=== PATIENT | male | born 1945 | race Caucasian/White ===

== ENCOUNTER 2018-06-12 19:45 | Emergency (ER) | payer OTHER ==
[~2018-06-12] VITALS: Ht 177.8 cm; Wt 86.2 kg
[~2018-06-12 19:45] MED LIST: ACID CONTROL150 MG PO; ALBUTEROL SULF8.5 GM IH; CARDIZEM CD240 MG PO; COUMADIN5 MG PO; CRESTOR20 MG PO; CYCLOBENZAPRINE10 MG PO; DOCUSATE SODIU100 MG PO; EVZIO0.4 MG/0.4 IJ; FINASTERIDE5 MG PO; FISH OIL 1,0001 EAC3 PO; FLOMAX0.4 MG PO; GABAPENTIN800 MG PO; HALFPRIN162 MG PO; MECLIZINE HCL25 MG PO; MS CONTIN30 MG PO; MS CONTIN60 MG PO; NAPROSYN375 MG PO; PROVENTIL HFA6.7 GM INH; RANEXA500 MG PO; SKIN TREATMENT225 GM TOP; TOPROL XL25 MG PO; TYLENOL325 MG PO; UREVAZ60 GM TP; VITAMIN B-121000 MC1 PO; VITAMIN C500 M1 PO; ZOFRAN ODT4 MG PO; ZOFRAN ODT8 MG PO; ZOLOFT100 MG PO
--- OUTSIDE RECORDS SUMMARY | 2018-06-12 19:50 | XMS ---
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 Sury has no Care Guidelines for this patient. Ariel VISIT COUNT (12 MO.) 1 TAYLOR Liu TOTAL 1 NOTE: Visits indicate total known visits. ED/UCC VISIT TRACKING (12 MO.) 06/12/2018 19:45 T[facility] Cook [place] TYPE: Emergency COMPLAINT: - R FINGER LAC INPATIENT VISIT TRACKING (12 MO.) No inpatient visits to display in this time frame [id number]
== END 2018-06-12 21:59 | disposition home or self-care (01) ==
LOC: ED 19:45
DX: S09.90XA Unspecified injury of head, initial encounter (principal); S61.210A Laceration without foreign body of right index finger without damage to nail, initial encounter; I10 Essential (primary) hypertension; I25.2 Old myocardial infarction; Z88.7 Allergy status to serum and vaccine; Z79.01 Long term (current) use of anticoagulants; Z79.899 Other long term (current) drug therapy; Z79.82 Long term (current) use of aspirin; W45.8XXA Other foreign body or object entering through skin, initial encounter; W19.XXXA Unspecified fall, initial encounter
CPT/HCPCS: 99283

== ENCOUNTER 2019-08-19 14:55 | Emergency (ER) | payer OTHER ==
[~2019-08-19] VITALS: Ht 177.8 cm; Wt 86.2 kg
[2019-08-19] MEDS ORDERED: NITROGLYCERIN0.4 MG SL (18:44)
--- NOTE | 2019-08-19 19:43 | EKG ---
[facility] [address] [facility] [place], [place] [address] Signed Ventricular-paced rhythm Abnormal ECG Confirmed by MELANIA CHRISTIAN MD ([id number]) on 08/19/2019 7:43:34 PM Electronically Signed By: MELANIA CHRISTIAN MD 08/19/19 194 PATIENT NAME: AMERICA ORTIZ Electrocardiogram DATE OF : 43 PHYSICIAN: MELANIA CHRISTIAN MD REPORT #: [id number] REPORT IS CONFIDENTIAL AND NOT TO BE RELEASED WITHOUT AUTHORIZATION
== END 2019-08-19 18:53 | disposition home or self-care (01) ==
LOC: ED 14:55
DX: R07.89 Other chest pain (principal); I10 Essential (primary) hypertension; I25.10 Atherosclerotic heart disease of native coronary artery without angina pectoris; K21.9 Gastro-esophageal reflux disease without esophagitis; I25.2 Old myocardial infarction; Z88.7 Allergy status to serum and vaccine; Z79.899 Other long term (current) drug therapy; Z79.01 Long term (current) use of anticoagulants; Z79.82 Long term (current) use of aspirin
CPT/HCPCS: 71045; 80053; 83735; 84484; 85025; 85610; 93005; 93010; 99285-25

== ENCOUNTER 2021-01-25 07:54 | Emergency (ER) | payer MEDICARE ==
[~2021-01-25] VITALS: Ht 177.8 cm; Wt 86.2 kg
[~2021-01-25 07:54] MED LIST changes: +NITROGLYCERIN0.4 MG SL
[2021-01-25] MEDS ORDERED: ELIQUIS5 MG PO (08:28)
[2021-01-25] MEDS ORDERED: D3-200050 MCG PO (08:29)
[2021-01-25] MEDS ORDERED: ACID CONTROLLER20 MG PO (08:30)
[2021-01-25] MEDS ORDERED: FISH OIL-VIT D1 EACH PO (08:31)
[2021-01-25] MEDS ORDERED: METOPROLOL SUCC50 MG PO (08:32)
[2021-01-25] MEDS ORDERED: MORPHINE SULFAT15 M1 PO (08:33)
[2021-01-25] MEDS ORDERED: FLOMAX0.4 MG PO (08:34)
[2021-01-25] MEDS ORDERED: ZITHROMAX250 MG PO (11:50)
--- NOTE | 2021-01-25 15:20 | EKG ---
[facility] [address] [facility] [place] [address] Signed Normal sinus rhythm Nonspecific T wave abnormality Prolonged QT Abnormal ECG When compared with ECG of 19-AUG-2019 15:00, Sinus rhythm has replaced Electronic ventricular pacemaker Vent. rate has decreased BY 42 BPM Confirmed by ALENA CRAMER MD ([id number]) on 01/25/2021 3:20:28 PM Electronically Signed By: ALENA CRAMER MD 01/25/21 1520 PATIENT NAME: AMERICA ORTIZ Electrocardiogram DATE OF : 43 PHYSICIAN: ALENA CRAMER MD REPORT #: [id number] REPORT IS CONFIDENTIAL AND NOT TO BE RELEASED WITHOUT AUTHORIZATION
--- NOTE | 2021-01-25 15:20 | EKG ---
[facility] [address] [facility] [place] [address] Signed Normal sinus rhythm Nonspecific T wave abnormality Prolonged QT Abnormal ECG When compared with ECG of 25-JAN-2021 08:00, (Unconfirmed) No significant change was found Confirmed by ALENA CRAMER MD ([id number]) on 01/25/2021 3:20:31 PM Electronically Signed By: ALENA CRAMER MD 01/25/21 1520 PATIENT NAME: AMERICA ORTIZ Don Electrocardiogram DATE OF : 43 PHYSICIAN: ALENA CRAMER MD REPORT #: [id number] REPORT IS CONFIDENTIAL AND NOT TO BE RELEASED WITHOUT AUTHORIZATION
== END 2021-01-25 12:08 | disposition home or self-care (01) ==
LOC: ED 07:54
DX: J18.1 Lobar pneumonia, unspecified organism (principal); R07.89 Other chest pain; Z20.822 Contact with and (suspected) exposure to COVID-19; I25.10 Atherosclerotic heart disease of native coronary artery without angina pectoris; K21.9 Gastro-esophageal reflux disease without esophagitis; I48.91 Unspecified atrial fibrillation; I25.2 Old myocardial infarction; I10 Essential (primary) hypertension; Z88.7 Allergy status to serum and vaccine; Z79.899 Other long term (current) drug therapy
CPT/HCPCS: 71045; 80053; 83605; 83735; 83880; 84484; 85025; 93005; 93010; 96365; 99285-25; C9803; J0696; U0003

== ENCOUNTER 2021-03-21 08:29 | Emergency (ER) | payer MEDICARE ==
[~2021-03-21] VITALS: Ht 177.8 cm; Wt 79.8 kg
[~2021-03-21 08:29] MED LIST changes: +ACID CONTROLLER20 MG PO; +D3-200050 MCG PO; +ELIQUIS5 MG PO; +FISH OIL-VIT D1 EACH PO; +METOPROLOL SUCC50 MG PO; +MORPHINE SULFAT15 M1 PO; +ZITHROMAX250 MG PO
== END 2021-03-21 11:49 | disposition home or self-care (01) ==
LOC: ED 08:29
DX: M47.892 Other spondylosis, cervical region (principal); I25.10 Atherosclerotic heart disease of native coronary artery without angina pectoris; K21.9 Gastro-esophageal reflux disease without esophagitis; I48.91 Unspecified atrial fibrillation; I25.2 Old myocardial infarction; I10 Essential (primary) hypertension; Z88.7 Allergy status to serum and vaccine; Z79.899 Other long term (current) drug therapy; Z79.891 Long term (current) use of opiate analgesic
CPT/HCPCS: 72125; 99283-25

== ENCOUNTER 2022-05-15 20:32 | Inpatient (IN) | payer OTHER, MEDICARE ==
[~2022-05-15] VITALS: Ht 177.8 cm; Wt 73.5 kg
[2022-05-16] MEDS ORDERED: ASPIRIN81 MG PO (02:01)
[2022-05-16] MEDS ORDERED: SERTRALINE HCL150 MG PO (02:01)
--- NOTE | 2022-05-16 02:47 | NUR ---
PT ARRIVED TO ROOM 114 AT 0138 VIA STRETCHER. PT ABLE TO STAND TO USE URINAL AND THEN TRANSFER SELF TO BED. TOLERATED WELL, WIHTOUT DIZZINESS OR SOB. ADMISSION AND ASSESSMENT COMPLETED. PT HAS 2L O2 VIA NC IN PLACE. TELE #2, PACED RHYTHM. IV ABX INFUSION COMPLETED, IV SALINE LOCKED. PT PROVIDED WITH WATER AND ORIENTED TO ROOM, BED, AND CALL [place]. DENIES FURTHER NEEDS AT THIS TIME, BELONGINGS AND CALL LIGHT WITHIN REACH.
--- NOTE | 2022-05-16 05:28 | NUR ---
PT SLEEPING, WOKE EASILY WHEN SPOKEN TO. ASSESSMENT COMPLETED, LUNGS SOUND DIMINISHED WITH COARSE CRACKLES IN BASES. OTHERWISE ASSESSMENT IS UNCHANGED. PT DENIES PAIN OR SOB. VSS. IV REMAINS INTACT. CALL LIGHT AND BELONGINGS WITHIN REACH.
--- NOTE | 2022-05-16 06:29 | NUR ---
IN TO CHECK ON PT, SLEEPING AT THIS TIME, DID NOT DISTURB. 2L O2 REMAINS IN PLACE. HR:60, SPO2:97% PER TELE. PT DOES NOT APPEAR TO BE IN ANY DISTRESS. URINAL EMPTIED. CALL LIGHT AND BELONGINGS WITHIN REACH.
--- NOTE | 2022-05-16 09:11 | NUR ---
Rounded on patient, resting in bed eating breakfast. Currently on 2L NC, states no SOB, endorses slight pain r/t PNA and deep breathing but denies needs at this time. Primary RN aware. Call light in reach.
--- NOTE | 2022-05-16 09:42 | NUR ---
PT. C/O PLEURITIC PAIN ON LEFT SIDE. LEFT LUNG IS DIM. THROUGHOUT. ADMIN TYLENOL. O2 SAT IS 94% ON 2L O2 NC. ASSESSMENT COMPLETED PT. ASSISTED WITH SITTING UP FOR BREAKFAST AND AMBULATING TO THE BATHROOM. ON THE WAY BACK FROM BATHROOM PT BEGAN TO STUMBLE AND HELD THE WALL. PT. STATES HE HAS CHRONIC VERTIGO. DISCUSSED SAFETY, POC AND MEDS. LEFT RESTING WITH CALL LIGHT IN REACH.
--- NOTE | 2022-05-16 11:41 | NUR ---
ANSWERED PATIENT'S CALL LIGHT. PATIENT WAS IN THE BATHROOM. WALKED WITH PATIENT BACK TO HIS BED. ONCE HE WAS SETTLED GAVE HIM A WASH CLOTH TO WASH HIS FACE AND ALSO A TOOTH BRUSH AND TOOTH PASTE TO CLEAN HIS DENTURES. ALSO GAVE HIM CUP WITH A LID TO PUT HIS TEETH IN AND SOAK OVERNIGHT.
--- NOTE | 2022-05-16 13:56 | NUR ---
PT. STATES HE IS HAVING WITHDRAWAL SX FROM NOT HAVING MORPHINE. ADMIN PRN PO MORPHINE. 02 SAT IS 94% ON 2L NC AND RR IS 23. PT DENIES FURTHER NEEDS AND LEFT RESTING WITH CALL LIGHT IN REACH.
--- NOTE | 2022-05-16 14:12 | NUR ---
PT. USED CALL LIGHT TO REPORT VOMITING. HE VOMITTED MORPHINE TAB. UPDATED , PT HAS ALREADY HAD ZOFRAN AND NOT DUE.
--- NOTE | 2022-05-16 14:42 | NUR ---
THIS RN TAKING OVER PATIENT CARE AND PRIMO ANTONY IS GOING FILM VAULT SUPERVISOR. REPORT RECEIVED. PATIENT JUST JUST RECEIVED IV COMPAZINE AND IV MORPHINE PER CASSIA'S REPORT PATIENT HAD VOMITED UP HIS ORAL PAIN MEDICATION. PATIENT HAS NO CURRENT NURSE NEEDS FROM THIS RN AT THIS TIME. CALL LIGHT IS IN REACH.
--- NOTE | 2022-05-16 15:13 | NUR ---
THIS RN IN TO SEE PATIENT AND GIVEN SCHEDULED PO MEDS. PATIENT REMAINS NAUSEATED AND 12.5MG SIVP PHENERGAN IN 20MLS NS GIVEN PER PROTOCOL AND HOLDING PO MEDS FOR A BIT TO LET PATIENT'S NAUSEA SETTLE. RT HERE TO GIVE A BREATHING TREATMENT. CALL LIGHT IN REACH.
--- NOTE | 2022-05-16 15:50 | NUR ---
PATIENT'S NAUSEA HAS SUBSIDED ENOUGH HE WAS ABLE TO FINALLY TAKE HIS PO MEDS. PATIENT STILL HAVING 7/10 PAIN, BUT UNABLE TO GIVE PAIN MEDICATION FOR ANOTHER 30 MINUTES. PATIENT AWAITING PATIENTLY. CALL LIGHT IS IN REACH.
--- NOTE | 2022-05-16 16:33 | NUR ---
THIS RN IN TO SEE PATIENT AND NAUSEA REMAINS GONE, BUT BACK AND SIDE PAIN REMAIN 6/10. 4MG SIVP MS GIVEN. PATIENT REQUESTED TO HAVE A URINAL AT BEDSIDE AND THIS WAS GIVEN. PATIENT DENIES ANY OTHER CARE NEEDS AT THIS TIME. CALL LIGHT IS IN REACH.
--- NOTE | 2022-05-16 17:42 | NUR ---
PATIENT'S VS AND I+O DONE AND RECORDED. ATE 60% OF DINNER AND ICE WATER IS REFILLED AND GLASS OF JUICE GIVEN PATIENT'S PAIN IS 2/10 AT THIS TIME AND HE IS COMFORTABLE. PATIENT CONTINUES TO DENY NAUSEA. CALL LIGHT IN REACH. PATIENT HAS NO OTHER CARE NEEDS AT THIS TIME.
--- NOTE | 2022-05-16 19:18 | NUR ---
SHIFT REPORT RECEIVED FROM DAYSHIFT PRIMO ROMERO AT BEDSIDE. pt AWAKE AND RESTING IN BED, RT CHLOE IN ROOM FOR SCHEDULED BREATHING TREATMENT. 2LNC IN PLACE, CHRONIC AT NIGHT. NO DISTRESS NOTED, CALL LIGHT IN REACH.
--- NOTE | 2022-05-16 20:15 | NUR ---
IN GET VS FOR RN, PT HAS URINAL AT BEDSIDE, IS DUE TO VOID FOR OURSHIFT, FRESH WATER FILLED, NO FURTHER NEEDS AT THIS TIME
--- NOTE | 2022-05-16 20:42 | NUR ---
ASSESSMENT COMPLETE, SCHEDULED EVENING MEDS GIVEN (SEE EMAR). pt A/OX4, DENIES PAIN AND NAUSEA. OCCASIONAL COUGHING NOTED, PRODUCING WHITE/YELLOW SPUTUM. LUNG SOUNDS CLEARN, SOMEWHAT DIM IN THE LOWER LOBES. IV SITE WNL, BRISK BLOOD RETURN NOTED. IV SITE WNL, IV ABX INFUSING DIRECTED. NO ADDITIONAL NEEDS. NEW ATTENDS IN PLACE. CALL LIGHT IN REACH.
--- NOTE | 2022-05-16 21:15 | NUR ---
CALL LIGHT ANSWERED, pt ASKING FOR PAIN MEDICATION, COLLEGE DEAN EDUAR TO ADMINISTER SCHEDULED PAIN MEDICATION. IV PUMP ALARMING, DISTAL OCCLUSION NOTED, pt EDUCATED TO USE CALL LIGHT WHEN IV PUMP ALARMS, pt VERBALIZED UNDERSTANDING. IV ABX CONTINUES TO INFUSE DIRECTED. WILL MONITOR.
--- NOTE | 2022-05-16 23:00 | NUR ---
scheduled iv abx infusing as directed, iv site remains wnl. dentures placed in cup with cleanser. glasses on table. no additional needs, call light in reach.
--- NOTE | 2022-05-17 00:10 | NUR ---
IV ABX COMPLETE, IV SITE FLUSHED AND SALINE LOCKED. WNL. PUMP CLEARED. JERRELL GUERIN REMAINS IN ROOM TO ASSIST pt TO BATHROOM. CPOX IN PLACE PER MD ORDERS.
--- NOTE | 2022-05-17 00:15 | NUR ---
IN TO SET PT UP WITH BEDSIDE CPOX, USED THE URINAL, NO FURTHER NEEDS AT THIS TIME
--- NOTE | 2022-05-17 02:06 | NUR ---
SPO2 94% ON 2LNC, HR 60'S. NO DISTRESS NOTED, CALL LIGHT IN REACH. RR EVEN AND UNLABORE. BED ALARM ON.
--- NOTE | 2022-05-17 02:23 | NUR ---
assessment complete, no acute changes. scheduled po cardiac med given, see emar. pt up to void, unable at this time. back in bed, bed alarm on. call light in reach.
--- NOTE | 2022-05-17 04:37 | NUR ---
CALL LIGHT ANSWERED, pt REQUESTING WARM BLANKET. IN BED SHIVERING. pt AFEBRILE, TEMP OF 98.3. BLANKET PROVIDED. PRN TYLENOL FOR 3/10 PAIN W/ COUGH. pt UP TO ATTEMPT TO VOID, UNSUCCESSFUL. BLADDER SCANNED FOR 492. DISCUSSED WITH DELIVERY SUPERVISOR, WILL MONITOR AND REASSESS pt HAS BEEN VOIDING W/O DIFFICULTY SINCE ARRIVAL. NO ADDITIONAL NEEDS, CALL LIGHT IN REACH. BED ALARM ON FOR SAFETY.
--- NOTE | 2022-05-17 06:27 | NUR ---
HAD PT UP IN RM WALKING, PT STARTED TO FEEL SOME URGE, ABLE TO VOID, BACK TO BED, NO FURTHER NEEDS AT THIS TIME
--- NOTE | 2022-05-17 06:32 | NUR ---
ROUNDED ON pt, pt AWAKE AND RESTING IN BED. BED ALARM ON FOR SAFETY. 2LNC REMAINS IN PLACE. pt DEMONSTRATED USE OF IS AND ACAPELLA. NO ADDITIONAL NEEDS, CALL LIGHT IN REACH.
--- NOTE | 2022-05-17 07:30 | NUR ---
THIS RN RECEIVED SHIFT REPORT FROM PRIMO JULIAN. PATIENTRESTING QUIETLY ON HIS RIGHT SIDE ON 2L/NC, EYES CLOSED, RESPIRATIONS ARE REGULAR AND EVEN, AND CALL LIGHT IS IN REACH. PATIENT HAS NO NURSE CARE NEEDS AT THIS TIME. CALL LIGHT IS IN REACH.
--- NOTE | 2022-05-17 08:38 | NUR ---
PATIENT SITTING UP EATING BREAKFAST, AM MEDS GIVEN ALONG WITH SCHEDULED MORPHINE PO FR CHRONIC PAIN 11/06 AT THIS TIME, PATIENT DENIES NAUSEA, PATIENT ATE 85% OF HIS BREAKFAST, AND AM ASSESSMENT IS COMPLETE. IV FLUSHES WELL. PATIENT DENIES ANY OTHER CARE NEEDS AT THIS TIME. BREAKFAST TRAY REMOVED. CALL LIGHT IS IN REACH.
[2022-05-17] MEDS ORDERED: AZITHROMYCIN500 MG PO (10:54)
[2022-05-17] MEDS ORDERED: CEFPODOXIME PR200 MG PO (10:55)
[2022-05-17] MEDS ORDERED: METOPROLOL SUCC50 MG PO (11:32)
[2022-05-17] MEDS ORDERED: NEURONTIN400 MG PO (11:33)
[2022-05-17] MEDS ORDERED: ZOLOFT100 MG PO (11:38)
--- NOTE | 2022-05-17 12:00 | NUR ---
PATIENT DC'D INTACT AND VS STABLE ON DC. B/P MED GIVEN BEFORE DC AND ALL PATIENT'S BELONGINGS RETURNED TO PATIENT. PATIENT TO CALL WEDNESDAY TO HIS PCP FOR F/U APPOINTMENT. PATIENT AND BOTH INFORMED TO FORENSIC TOXICOLOGIST RX'S AT [facility]. THIS RN TOOK PATIENT OUT TO HIS PRIVATE CAR BY TO GO HOME. PATIENT AND HAD NO UNANSWERED QUESTIONS. PATIENT SENT HOME WITH ALL BELONGINGS.
--- NOTE | 2022-05-17 16:21 | EKG ---
[facility] [address] [facility] [place] [address] Signed Sinus rhythm with sinus arrhythmia with occasional premature ventricular complexes Intermittent atrial pacing Abnormal QRS-T angle, consider primary T wave abnormality Abnormal ECG When compared with ECG of 25-JAN-2021 08:38, premature ventricular complexes are now present Confirmed by ALENA CRAMER MD ([id number]) on 05/17/2022 4:21:14 PM Electronically Signed By: ALENA CRAMER MD 05/17/22 1621 PATIENT NAME: AMERICA ORTIZ Don Electrocardiogram DATE OF : 43 PHYSICIAN: ALENA CRAMER MD REPORT #: [id number] REPORT IS CONFIDENTIAL AND NOT TO BE RELEASED WITHOUT AUTHORIZATION
== END 2022-05-17 12:00 | disposition home or self-care (01) | DRG 177 ==
LOC: ED 20:32 → MS 20:33
PROVIDERS: ADMIT Internal Medicine; ATTEND Internal Medicine
DX: J15.6 Pneumonia due to other Gram-negative bacteria (principal); J96.01 Acute respiratory failure with hypoxia; B17.9 Acute viral hepatitis, unspecified; F11.20 Opioid dependence, uncomplicated; I48.20 Chronic atrial fibrillation, unspecified; I25.10 Atherosclerotic heart disease of native coronary artery without angina pectoris; K21.9 Gastro-esophageal reflux disease without esophagitis; N40.0 Benign prostatic hyperplasia without lower urinary tract symptoms; E78.00 Pure hypercholesterolemia, unspecified; G89.4 Chronic pain syndrome; K44.9 Diaphragmatic hernia without obstruction or gangrene; M19.90 Unspecified osteoarthritis, unspecified site; I10 Essential (primary) hypertension; Z95.1 Presence of aortocoronary bypass graft; I25.2 Old myocardial infarction; Z87.828 Personal history of other (healed) physical injury and trauma; Z98.890 Other specified postprocedural states; Z89.022 Acquired absence of left finger(s); Z88.7 Allergy status to serum and vaccine; Z79.51 Long term (current) use of inhaled steroids; Z79.899 Other long term (current) drug therapy; Z79.01 Long term (current) use of anticoagulants; Z95.0 Presence of cardiac pacemaker; Z20.822 Contact with and (suspected) exposure to COVID-19
CPT/HCPCS: 36415; 71045; 71260; 80053; 83735; 83880; 84484; 85025; 87070; 87205; 87502; 93005; 93010; 94640; 94667; 94668; 94760; 94761; 94762; 96365; 96366; 96375; 99285-25; A9270; C9803; J0456; J0696; J0780; J2270; J2405; J2550; J3475; J7060; U0003

== ENCOUNTER 2022-08-31 08:16 | Emergency (ER) | payer OTHER, MEDICARE ==
[~2022-08-31] VITALS: Ht 177.8 cm; Wt 73.5 kg
[~2022-08-31 08:16] MED LIST changes: +ASPIRIN81 MG PO; +AZITHROMYCIN500 MG PO; +CEFPODOXIME PR200 MG PO; +NEURONTIN400 MG PO; +SERTRALINE HCL150 MG PO
[2022-08-31] MEDS ORDERED: CEFDINIR300 MG PO (15:11)
[2022-08-31] MEDS ORDERED: ZITHROMAX250 MG PO (15:11)
--- NOTE | 2022-09-02 23:09 | EKG ---
[facility] [address] [facility] [place] [address] Signed Ventricular-paced rhythm Abnormal ECG When compared with ECG of 15-MAY-2022 21:02, Electronic ventricular pacemaker has replaced Sinus rhythm Confirmed by Jacqueline Bowers MD () on 09/02/2022 11:09:04 PM Electronically Signed By: JACQUELINE BOWERS MD 09/02/22 2309 PATIENT NAME: AMERICA ORTIZ Electrocardiogram DATE OF : 43 PHYSICIAN: JACQUELINE BOWERS MD REPORT #: [id number] REPORT IS CONFIDENTIAL AND NOT TO BE RELEASED WITHOUT AUTHORIZATION
== END 2022-08-31 15:48 | disposition home or self-care (01) ==
LOC: ED 08:16
DX: J18.9 Pneumonia, unspecified organism (principal); K44.9 Diaphragmatic hernia without obstruction or gangrene; I25.10 Atherosclerotic heart disease of native coronary artery without angina pectoris; K21.9 Gastro-esophageal reflux disease without esophagitis; I48.91 Unspecified atrial fibrillation; N40.0 Benign prostatic hyperplasia without lower urinary tract symptoms; I25.2 Old myocardial infarction; I10 Essential (primary) hypertension; Z88.7 Allergy status to serum and vaccine; Z79.899 Other long term (current) drug therapy; Z79.01 Long term (current) use of anticoagulants; Z79.82 Long term (current) use of aspirin; Z20.822 Contact with and (suspected) exposure to COVID-19
CPT/HCPCS: 36415; 71045; 71260; 80053; 81003; 83605; 83880; 85025; 85610; 85730; 87502; 93005; 93010; 94640; 96365; 96375; 99285-25; C9803; J0696; J2930; Q9967; U0003

== ENCOUNTER 2023-01-22 09:17 | Emergency (ER) | payer OTHER, MEDICARE ==
[~2023-01-22] VITALS: Ht 177.8 cm; Wt 76.7 kg
[~2023-01-22 09:17] MED LIST changes: +CEFDINIR300 MG PO
[2023-01-22] MEDS ORDERED: COLACE100 MG PO (10:23)
[2023-01-22] MEDS ORDERED: DILTIAZEM ER240 MG PO (10:25)
[2023-01-22] MEDS ORDERED: LASIX20 MG PO (11:46)
[2023-01-22] MEDS ORDERED: K-TAB10 MEQ PO (11:46)
[2023-01-22 12:20] VITALS: BP 116/60
--- NOTE | 2023-01-24 16:42 | EKG ---
[facility] [address] [facility] [place] [address] Signed Sinus rhythm with occasional ventricular-paced complexes and with occasional premature ventricular complexes T wave abnormality, consider anterolateral ischemia Abnormal ECG When compared with ECG of 31-AUG-2022 08:44, premature ventricular complexes are now present Vent. rate has decreased BY 41 BPM Confirmed by ALENA CRAMER MD ([id number]) on 01/24/2023 4:42:05 PM Electronically Signed By: ALENA CRAMER MD 01/24/23 1642 PATIENT NAME: AMERICA ORTIZ Electrocardiogram DATE OF : 43 PHYSICIAN: ALENA CRAMER MD REPORT #: [id number] REPORT IS CONFIDENTIAL AND NOT TO BE RELEASED WITHOUT AUTHORIZATION
== END 2023-01-22 12:20 | disposition home or self-care (01) ==
LOC: ED 09:17
DX: I11.0 Hypertensive heart disease with heart failure (principal); I50.9 Heart failure, unspecified; N40.0 Benign prostatic hyperplasia without lower urinary tract symptoms; I25.10 Atherosclerotic heart disease of native coronary artery without angina pectoris; I25.2 Old myocardial infarction; Z95.1 Presence of aortocoronary bypass graft; Z88.7 Allergy status to serum and vaccine; Z79.01 Long term (current) use of anticoagulants; Z79.899 Other long term (current) drug therapy; Z79.82 Long term (current) use of aspirin
CPT/HCPCS: 36415; 71045; 80053; 83880; 84484; 85025; 93005; 93010; 96374; 99285-25; J1940

== ENCOUNTER 2023-02-17 20:32 | Emergency (ER) | payer OTHER ==
[~2023-02-17] VITALS: Ht 177.8 cm; Wt 76.7 kg
[~2023-02-17 20:32] MED LIST changes: +COLACE100 MG PO; +DILTIAZEM ER240 MG PO; +K-TAB10 MEQ PO; +LASIX20 MG PO
--- OUTSIDE RECORDS SUMMARY | 2023-02-17 20:34 | XMS ---
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 Sury has no Care Guidelines for this patient. Ariel [facility] (12 MO.) [facility] 4 NOTE: Visits indicate total known visits. ED/C VISIT TRACKING (12 MO.) [facility]23 [facility] [place] [facility] COMPLAINT: - CHEST PAIN 01/22/2023 09:17 [facility] [place] TYPE: Emergency COMPLAINT: - SHORTNESS OF BREATH DIAGNOSES: - Allergy status to serum and vaccine - Atherosclerotic heart disease of [place] coronary artery without angina pectoris - Benign prostatic hyperplasia without lower urinary tract symptoms - Chest pain, unspecified - Heart failure, unspecified - Hypertensive heart disease with heart failure - termite exterminator helper (current) use of anticoagulants - termite exterminator helper (current) use of aspirin - Old myocardial infarction - Other extermination inspector (current) drug therapy - Presence of aortocoronary bypass graft 08/31/2022 08:16 [facility] [place] TYPE: Emergency COMPLAINT: - SOB, WHEEZING, CONGESTION, COUGH DIAGNOSES: - Allergy status to serum and vaccine - Atherosclerotic heart disease of [place] coronary artery without angina pectoris - Benign prostatic hyperplasia without lower urinary tract symptoms - Contact with and (suspected) exposure to COVID- - Cough, unspecified - Diaphragmatic hernia without obstruction or gangrene - Essential (primary) hypertension - Gastro-esophageal reflux disease without esophagitis - halfway (current) use of anticoagulants - halfway (current) use of aspirin - Old myocardial infarction - Other senior care (current) drug therapy - Pneumonia, unspecified organism - Unspecified atrial fibrillation 05/15/2022 20:32 [facility] [place] TYPE: Emergency COMPLAINT: - SHORTNESS OF BREATH, FEVER INPATIENT VISIT TRACKING (12 MO.) 05/16/2022 10:10 [facility] Cook [place] TYPE: Medical Surgical COMPLAINT: - PNEUMONIA DIAGNOSES: - Acquired absence of left finger(s) - Acquired absence of left finger(s) - Acute respiratory failure with hypoxia - Acute respiratory failure with hypoxia - Acute viral hepatitis, unspecified - Acute viral hepatitis, unspecified - Allergy status to serum and vaccine - Allergy status to serum and vaccine - Atherosclerotic heart disease of [place] coronary artery without angina pectoris - Atherosclerotic heart disease of [place] coronary artery without angina pectoris - Benign prostatic hyperplasia without lower urinary tract symptoms - Benign prostatic hyperplasia without lower urinary tract symptoms - Chronic atrial fibrillation, unspecified - Chronic atrial fibrillation, unspecified - Chronic pain syndrome - Chronic pain syndrome - Contact with and (suspected) exposure to COVID-19 - Contact with and (suspected) exposure to COVID-19 - Diaphragmatic hernia without obstruction or gangrene - Diaphragmatic hernia without obstruction or gangrene - Essential (primary) hypertension - Essential (primary) hypertension - Gastro-esophageal reflux disease without esophagitis - Gastro-esophageal reflux disease without esophagitis - termite exterminator helper (current) use of anticoagulants - termite exterminator helper (current) use of anticoagulants - termite exterminator helper (current) use of inhaled steroids - termite exterminator helper (current) use of inhaled steroids - Old myocardial infarction - Old myocardial infarction - Opioid dependence, uncomplicated - Opioid dependence, uncomplicated - Other senior care (current) drug therapy - Other senior care (current) drug therapy - Other specified postprocedural states - Other specified postprocedural states - Personal history of other (healed) physical injury and trauma - Personal history of other (healed) physical injury and trauma - Pneumonia due to other Gram-negative bacteria - Pneumonia due to other Gram-negative bacteria - Pneumonia, unspecified organism - Presence of aortocoronary bypass graft - Presence of aortocoronary bypass graft - Presence of cardiac pacemaker - Presence of cardiac pacemaker - Pure hypercholesterolemia, unspecified - Pure hypercholesterolemia, unspecified - Unspecified osteoarthritis, unspecified site - Unspecified osteoarthritis, unspecified site [email or web address]
[2023-02-17 23:28] VITALS: BP 128/50
--- NOTE | 2023-02-18 00:01 | EKG ---
[facility] [address] [facility] [place] [address] Signed Normal sinus rhythm T wave abnormality, consider anterolateral ischemia Prolonged QT Abnormal ECG No previous ECGs available Confirmed by MELANIA CHRISTIAN MD ([id number]) on 02/18/2023 12:01:41 AM Electronically Signed By: MELANIA CHRISTIAN MD 02/18/23 0001 PATIENT NAME: AMERICA ORTIZ Electrocardiogram DATE OF : 43 PHYSICIAN: MELANIA CHRISTIAN MD REPORT #: [id number] REPORT IS CONFIDENTIAL AND NOT TO BE RELEASED WITHOUT AUTHORIZATION
== END 2023-02-17 23:29 | disposition home or self-care (01) ==
LOC: ED 20:32
DX: R07.89 Other chest pain (principal); I25.10 Atherosclerotic heart disease of native coronary artery without angina pectoris; I10 Essential (primary) hypertension; I48.91 Unspecified atrial fibrillation; I25.2 Old myocardial infarction; Z95.1 Presence of aortocoronary bypass graft; Z95.5 Presence of coronary angioplasty implant and graft; Z95.0 Presence of cardiac pacemaker; Z88.7 Allergy status to serum and vaccine; Z79.899 Other long term (current) drug therapy; Z79.01 Long term (current) use of anticoagulants; Z79.82 Long term (current) use of aspirin
CPT/HCPCS: 36415; 71045; 80053; 83735; 84484; 85025; 93005; 93010; 96374; 96375; 99285-25; J1170; J2405

== ENCOUNTER 2023-08-23 14:22 | Emergency (ER) | payer OTHER, MEDICARE ==
[~2023-08-23] VITALS: Ht 177.8 cm; Wt 71.0 kg
[2023-08-23 18:17] LABS: BASOPHILS 0.3 % (0-2); EOSINOPHILS 1.3 % (0-6); HEMATOCRIT 31.4 % (35.0-50.0); HEMOGLOBIN 10.6 g/dL (12.0-18.0); LYMPHOCYTES 33.3 % (24-44); MCH 31.8 (27-36); MCHC 33.6 g/dl (30-36); MCV 94.6 fl (81-99); NEUTROPHILS 54.1 % (39-80); PLATELET COUNT 154 K/uL (140-440); RBC 3.32 M/ul (4.3-5.7); RDW 15.1 (10.5-15.0)
[2023-08-23 18:36] LABS: ALBUMIN 3.2 g/dL (3.4-5.0); ALBUMIN/GLOBULIN RATIO 0.97 (1.1-2.4); ANION GAP 10.9 (7-21); BILIRUBIN, TOTAL 0.7 ng/dL (0.2-1.0); BUN/CREATININE RATIO 17.02 (6.0-28.6); CALCIUM 8.6 mg/dL (8.5-10.1); CREATININE, SERUM 0.94 mg/dL (0.70-1.30); POTASSIUM 3.9 mmol/L (3.5-5.1); PROTEIN, TOTAL 6.5 g/dL (6.4-8.2)
[2023-08-23 20:00] VITALS: BP 156/46
--- NOTE | 2023-08-24 05:55 | EKG ---
[facility] [address] [facility] [place] [address] Signed Atrial-paced rhythm ST \T\ T wave abnormality, consider anterior ischemia Abnormal ECG When compared with ECG of 17-FEB-2023 20:36, Electronic atrial pacemaker has replaced Sinus rhythm Nonspecific T wave abnormality no longer evident in Inferior leads Confirmed by MONET NG MD ([id number]) on 08/24/2023 5:54:59 AM Electronically Signed By: MONET NG 08/24/23 0555 PATIENT NAME: AMERICA ORTIZ Don Electrocardiogram DATE OF : 43 PHYSICIAN: MONET NG REPORT #: [id number] REPORT IS CONFIDENTIAL AND NOT TO BE RELEASED WITHOUT AUTHORIZATION
== END 2023-08-23 20:00 | disposition home or self-care (01) ==
LOC: ED 14:22
PROVIDERS: Emergency Medicine
DX: U07.1 COVID-19 (principal); R07.9 Chest pain, unspecified; I10 Essential (primary) hypertension; I25.10 Atherosclerotic heart disease of native coronary artery without angina pectoris; I25.2 Old myocardial infarction; I48.91 Unspecified atrial fibrillation; K21.9 Gastro-esophageal reflux disease without esophagitis; Z95.1 Presence of aortocoronary bypass graft; Z95.0 Presence of cardiac pacemaker; Z88.7 Allergy status to serum and vaccine; Z79.899 Other long term (current) drug therapy; Z79.01 Long term (current) use of anticoagulants; Z79.82 Long term (current) use of aspirin
CPT/HCPCS: 36415; 71045; 80053; 84484; 85025; 93005; 93010

== ENCOUNTER 2024-12-01 10:46 | Emergency (ER) | payer OTHER, MEDICARE ==
[~2024-12-01] VITALS: Ht 177.8 cm; Wt 73.9 kg
[2024-12-01] MEDS ORDERED: ASPIRIN 81 MG CHEW PO ONE (11:15)
[2024-12-01 11:32] LABS: BASOPHILS 0.4 % (0-2); EOSINOPHILS 1.6 % (0-6); HEMATOCRIT 34.8 % (35.0-50.0); LYMPHOCYTES 22.6 % (24-44); MCH 33.3 (27-36); MCHC 34.4 g/dl (30-36); MCV 96.8 fl (81-99); MONOCYTES 7.7 % (0-12); NEUTROPHILS 67.7 % (39-80); PLATELET COUNT 131 K/uL (140-440); RBC 3.59 M/ul (4.3-5.7); RDW 14.5 (10.5-15.0)
[2024-12-01 11:47] LABS: CORONAVIRUS COVID-19 AG NEGATIVE (NEGATIVE); INFLUENZA A AG NEGATIVE (NEGATIVE); INFLUENZA B AG NEGATIVE (NEGATIVE)
[2024-12-01 11:55] LABS: ALBUMIN 3.6 g/dL (3.4-5.0); ALBUMIN/GLOBULIN RATIO 1.29 (1.1-2.4); ANION GAP 10.2 (7-21); BILIRUBIN, TOTAL 0.8 mg/dL (0.2-1.0); BUN/CREATININE RATIO 23.25 (6.0-28.6); CALCIUM 8.9 mg/dL (8.5-10.1); CREATININE, SERUM 0.86 mg/dL (0.70-1.30); POTASSIUM 4.2 mmol/L (3.5-5.1); PROTEIN, TOTAL 6.4 g/dL (6.4-8.2)
[2024-12-01 15:39] VITALS: BP 133/75
--- NOTE | 2024-12-01 19:52 | EKG ---
[facility] [address] [facility] [place] [address] Signed AV dual-paced rhythm Abnormal ECG When compared with ECG of 23-AUG-2023 18:08, Electronic ventricular pacemaker has replaced Electronic atrial pacemaker Confirmed by Rosa Estrada MD ([id number]) on 12/01/2024 7:52:30 PM Electronically Signed By: ROSA ESTRADA MD 12/01/241951 PATIENT NAME: AMERICA ORTIZ Electrocardiogram DATE OF : 43 PHYSICIAN: ROSA ESTRADA MD REPORT #: [id number] REPORT IS CONFIDENTIAL AND NOT TO BE RELEASED WITHOUT AUTHORIZATION
== END 2024-12-01 15:39 | disposition short-term general hospital (02) ==
LOC: ED 10:46
PROVIDERS: Emergency Medicine
DX: R07.89 Other chest pain (principal); I10 Essential (primary) hypertension; I25.10 Atherosclerotic heart disease of native coronary artery without angina pectoris; I25.2 Old myocardial infarction; I48.91 Unspecified atrial fibrillation; K21.9 Gastro-esophageal reflux disease without esophagitis; Z88.7 Allergy status to serum and vaccine; Z79.01 Long term (current) use of anticoagulants; Z79.82 Long term (current) use of aspirin; Z79.899 Other long term (current) drug therapy
CPT/HCPCS: 36415; 71045; 80053; 83880; 84484; 85025; 93005; 93010; 99285-25; A9270

== ENCOUNTER 2025-04-16 09:05 | Emergency (ER) | payer OTHER, MEDICARE ==
[~2025-04-16] VITALS: Ht 177.8 cm; Wt 71.0 kg
--- OUTSIDE RECORDS SUMMARY | 2025-04-16 09:12 | XMS ---
PreManage Notification: AMERICA ORTIZ Security Cyber Security Events No recent Security Events currently on file CRITERIA MET - [facility] - 2 Visits in 30 Days CARE PROVIDERS There are no care providers on record at this time. Sury has no Care Guidelines for this patient. Ariel VISIT COUNT (12 MO.) 3 TAYL[facility] TOTAL 4 NOTE: Visits indicate total known visits. ED/UCC VISIT TRACKING (12 MO.) 04/16/2025 09:[address] [facility] [facility] [place] TYPE: Emergency COMPLAINT: - RT KNEE PAIN 03/31/2025 12:39 [facility] [place] TYPE: Emergency COMPLAINT: - RT KNEE PAIN DIAGNOSES: - Allergy status to serum and vaccine - Gastro-esophageal reflux disease without esophagitis - correction (current) use of aspirin - Old myocardial infarction - Other long distance billing operator (current) drug therapy - Pain in right knee - Unspecified osteoarthritis, unspecified site 12/01/2024 16:57 [facility] TYPE: Emergency DIAGNOSES: - Chest pain, unspecified - Chest Pain - exertional chest pain - Shortness of Breath 12/01/2024 10:46 [facility] [place] TYPE: Emergency COMPLAINT: - SHORTNESS OF BREATH DIAGNOSES: - Allergy status to serum and vaccine - Atherosclerotic heart disease of [place] coronary artery without angina pectoris - Essential (primary) hypertension - Gastro-esophageal reflux disease without esophagitis - correction (current) use of anticoagulants - correction (current) use of aspirin - Old myocardial infarction - Other chest pain - Other long distance billing operator (current) drug therapy - Unspecified atrial fibrillation INPATIENT VISIT TRACKING (12 MO.) 12[facility]2024 16:57 [facility] DIAGNOSES: - Chest pain, unspecified - Other forms of angina pectoris - Unstable angina [id number]
[2025-04-16] MEDS ORDERED: HYDROCODONE/APAP 10/325 1 TAB PO ONE (10:15)
[2025-04-16 10:22] LABS: BASOPHILS 0.2 % (0.2-1.2); EOSINOPHILS 0.7 % (0.8-7.0); LYMPHOCYTES 18.8 % (21.8-53.1); MCH 31.6 PG (25.7-32.2); MCHC 33.4 g/dL (32.3-36.5); MCV 94.5 fL (79.0-92.2); MONOCYTES 7.4 % (5.3-12.2); NEUTROPHILS 72.5 % (34.0-67.9); RBC 3.48 M/uL (4.63-6.08)
[2025-04-16 10:37] LABS: ALT (SGPT) 19.0 U/L (14-59); AST (SGOT) 12.0 U/L (15-37); GLOMERULAR FILTRATION RATE,EST 92.0 mL/min (>60); PROTEIN, TOTAL 6.5 g/dL (6.4-8.2); UREA NITROGEN 16.0 mg/dL (7-18)
[2025-04-16] MEDS ORDERED: CEPHALEXIN500 M1 PO (11:11)
[2025-04-16] MEDS ORDERED: CEPHALEXIN MONOHYDRATE 500 MG CAP PO ONE (11:15)
[2025-04-16 11:19] VITALS: BP 124/62
== END 2025-04-16 11:22 | disposition home or self-care (01) ==
LOC: ED 09:05
PROVIDERS: Emergency Medicine
DX: L03.115 Cellulitis of right lower limb (principal); I10 Essential (primary) hypertension; K21.9 Gastro-esophageal reflux disease without esophagitis; I48.91 Unspecified atrial fibrillation; Z88.7 Allergy status to serum and vaccine; Z87.891 Personal history of nicotine dependence; Z79.899 Other long term (current) drug therapy
CPT/HCPCS: 36415; 73590; 80053; 85025; 93971; 99284-25; A9270